=== PATIENT | male | born 1975 | race American Indian/Alaskan Native ===

== ENCOUNTER 2017-09-30 21:01 | Inpatient (IN) | payer SELFPAY ==
[2017-09-30 21:04] VITALS: BMI 33.4
[2017-09-30 21:10] VITALS: O2SAT 98
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
--- NOTE | 2017-10-01 01:13 | ED PDOC ---
- Laboratory Results Result Diagrams: 10/01/17 01:20 10/01/17 01:20 - ECG ECG: Positive for: Viewed By Me (reviewed by ED attending) ECG Rhythm: Positive for: Sinus Rhythm O2 Sat by Pulse Oximetry: 98 Pulse Ox Interpretation: Normal - Radiology X-Ray: Viewed By Me X-Ray Interpretation: No Acute Disease - Progress ED Course And Treament: Case endorsed to sign writer letterer or painter from [facility] SERR[facility] pending labs, xray, ekg Medical Decision Making Medical Decision Making: Patient medically stable for psych admission. Disposition - Clinical Impression Clinical Impression: Adjustment disorder, Depressed mood - POA Present On Arrival: None - Disposition Disposition: Admitted as In-Patient Disposition Time: 02:15 Condition: STABLE
[2017-10-01 01:35] LABS: BASO # 0.1 K/uL (0.0-0.2); BASO % 0.8 % (0.0-2.0); EOS # 0.4 K/uL (0.0-0.7); EOS % 4.7 % (0.0-4.0); HEMOGLOBIN 13.3 g/dL (12.0-18.0); LYMPH # 3.1 K/uL (1.0-4.3); LYMPH % 34.1 % (20.0-40.0); MEAN CELL VOLUME 92.8 fl (80.0-94.0); MEAN CORPUSCULAR HEMOGLOBIN 29.2 pg (27.0-31.0); MEAN CORPUSCULAR HGB CONC 31.5 g/dL (33.0-37.0); MEAN PLATELET VOLUME 8.3 fl (7.2-11.7); MONO # 0.8 K/uL (0.0-0.8); MONO % 9.2 % (0.0-10.0); NEUT # 4.6 K/uL (1.8-7.0); NEUT % 51.2 % (50.0-75.0); NRBC % 0.1 % (0.0-0.0); RBC 4.54 Mil/uL (4.40-5.90); RED CELL DISTRIBUTION WIDTH 14.9 % (11.5-14.5)
[2017-10-01 01:42] LABS: SQUAMOUS EPITHIAL 2 /hpf (0-5); URINE BACTERIA RARE (<OCC); URINE BILIRUBIN NEGATIVE (NEGATIVE); URINE BLOOD NEGATIVE (NEGATIVE); URINE CLARITY SLIGHTY-CLOUDY (Clear); URINE COLOR YELLOW (YELLOW); URINE GLUCOSE (UA) NEG (Normal); URINE LEUKOCYTE ESTERASE NEG Leu/uL (Negative); URINE NITRATE NEGATIVE (NEGATIVE); URINE PROTEIN 30 mg/dL (NEGATIVE)
[2017-10-01 01:49] LABS: ALB/GLOB RATIO 1.2 (1.0-2.1); ALBUMIN 3.8 g/dL (3.5-5.0); ALT/SGPT 40 U/L (21-72); AST/SGOT 20 U/L (17-59); BARBITURATES, UR NEGATIVE (NEGATIVE); BENZODIAZEPINES, UR NEGATIVE (NEGATIVE); BLOOD UREA NITROGEN 24 mg/dl (9-20); CALCIUM 8.9 mg/dL (8.4-10.2); GFR AFRICAN-AMERICAN > 60; GFR NON-AFRICAN AMERICAN > 60; OPIATES, UR NEGATIVE (NEGATIVE); PHENCYCLIDINE, UR NEGATIVE (NEGATIVE)
[2017-10-01 03:14] VITALS: RESP 18
[2017-10-01] MEDS ORDERED: Alum-Mag Hydrox-Simethicone Susp (30 mL) PO PRN (03:56)
[2017-10-01] MEDS ORDERED: Magnesium Hydroxide Susp 30 ml UD PO PRN (03:56)
[2017-10-01] MEDS ORDERED: DiphenhydrAMINE 50 mg/ml Inj IM PRN (03:56)
[2017-10-01] MEDS ORDERED: Bismuth Subsalicylate 262 mg/15 ml Sus (240 ml) PO PRN (03:58)
--- NOTE | 2017-10-01 04:24 | PCM.BM ---
<RoxanaFly Burns - Last Filed: 10/01/17 04:22> Treatment Plan Problems - Problems identified on initial assessmt Medication nonadherence Date Initiated: 10/01/17 Time Initiated: : Assessment reference: NA Status: Active Altered Sleep Patterns Date Initiated: 10/01/17 Time Initiated: 04:23 Assessment reference: NA Status: Active Treatment assets and liabiliti Patient Assests: physically healthy, negotiates basic needs, cognitively intact Patient Liabilities: live alone, financial problems, poor support system - Milieu Protocol Maintain good personal hygiene: daily Encourage regular showers, daily Remind patient to perform daily oral care Conduct patient checks and document Observation sheet: Q15 minutes Maintain personal safety: every shift Educate patient to report safety concerns to staff, every shift Monitor environment for contraband/sharps Medication safety: Monitor for expected outcome, potential side effects: every shift, Assess barriers to learning: every shift, Assess readiness for medication education: every shift <Alec Wilburn J - Last Filed: 10/03/17 16:39> Family Contact Family involvement: Family/SO is involved Family contact: Patient declines to allow family contact at present Family contact name: Pt refused. - Goals for Treatment Patient goals for treatment: Pt did not list any goals for treatment and instead was fixated on making sure [facility] would pay for him to return to [place]. Discharge/Continuing Care - Education Needs Education Needs: Patient Medication, Patient Coping Skills, Patient Community resources, Patient Aftercare Safety Plan - Discharge Discharge Criteria: Tolerates medication w/o severe side effects, Free of Suicidal thoughts, Free of agitation, Normal sleep pattern Discharge to:: Home, With Family <Doreen Kim - Last Filed: 10/04/17 12:11> Discharge/Continuing Care - Treatment Team Participation Patient/Family/SO Statement: 10/04/17 12:11 Patient initially refused to attend tx team, stating "I always spoke to the doctor". Patient agreed to attend with staff encouragement. Patient presents as superficially cooperative and superficially pleasant. Patient visible on 3NP and observed socializing with select peers. Patient less depressed, anxious and irritable than upon admission. Insight is limited. Patient ambivalent towards aftercare and focused on housing resources. Territory Service Representative emphasized importance of compliance with aftercare to reduce risk of future hospitalizations and ensure maximum safety/functioning in the community. Patient agreeable to outpatient mental health services but expressed concerns towards being able to travel to [facility] secondary to being unfamiliar with the area. [facility] discussed. Patient agreeable. Discussed with Family/SO: No Was Patient/Family/SO present at Treatment Team Meeting: Yes <Jordon Reynolds - Last Filed: 10/05/17 09:29> - Diagnosis (1) Depression Status: Acute Interventions: 10/05/17 09:28 psychotherapy, pharmacotherapy (2) Depressed mood Status: Acute Interventions: psychotherapy, pharmacotherapy 10/05/17 09:29
--- NOTE | 2017-10-01 09:47 | RAD ---
HISTORY: psych COMPARISON: None available. TECHNIQUE: Chest, one view. FINDINGS: LUNGS: No focal consolidation. Probable calcified granulomas at the right mid to lower lung field. Please note that chest x-ray has limited sensitivity for the detection of pulmonary masses. PLEURA: No significant pleural effusion identified. No definite pneumothorax . CARDIOVASCULAR: Heart size appears within normal limits. OSSEOUS STRUCTURES: Degenerative changes of the spine. VISUALIZED UPPER ABDOMEN: Unremarkable. OTHER FINDINGS: None. IMPRESSION: No focal consolidation, significant pleural effusion, or definite pneumothorax identified. Probable calcified granulomas, right mid to lower lung field.
--- NOTE | 2017-10-01 10:22 | CP.PCM.CON ---
<Chanda Norton - Last Filed: 10/01/17 15:16> History of Present Illness - History of Present Illness History of Present Illness: 42 y/o male patient with no significant PMHx was seen and evaluated at bedside in psych this morning. Patient states that he came to the ED last night for SI. Patient states that he has been having this type of ideas for a while now. Patient denies of any recent F/N/V/C/SOB/CP/headache/calf pain/diarrhea. Denies of any other complains at this time. PMHx: Denies PSHx: Leg surgery at [facility] due to a dog bite Allergies: N.K.D.A SHx: Denies smoking, EtOH or illicit drug usage, lives in [place] with his dad FHx: Hx of HTN Review of Systems - Constitutional Constitutional: As Per HPI Past Patient History - Past Social History Smoking Status: Never Smoked - CARDIAC Hx Cardiac Disorders: No - PULMONARY Hx Tuberculosis: No - NEUROLOGICAL Hx Neurological Disorder: No HX Cerebrovascular Accident: No Hx Seizures: No - HEENT Hx HEENT Problems: No - RENAL Hx Chronic Kidney Disease: No - ENDOCRINE/METABOLIC Hx Endocrine Disorders: No - HEMATOLOGICAL/ONCOLOGICAL Hx Blood Disorders: No Hx Cancer: No Hx Human Immunodeficiency Virus (HIV): No - INTEGUMENTARY Hx Dermatological Problems: No - MUSCULOSKELETAL/RHEUMATOLOGICAL Hx Musculoskeletal Disorders: No - GASTROINTESTINAL Hx Gastrointestinal Disorders: No - GENITOURINARY/GYNECOLOGICAL Hx Genitourinary Disorders: No Hx Sexually Transmitted Disorders: No - PSYCHIATRIC Hx Substance Use: No - SURGICAL HISTORY Hx Surgeries: No - ANESTHESIA Hx Anesthesia: No Meds Allergies/Adverse Reactions: Allergies Allergy/AdvReac Type Severity Reaction Status Date / Time No Known Allergies Allergy Verified 09/30/17 21:03 - Medications Medications: Current Medications Acetaminophen (Tylenol 325mg Tab) 650 mg PO Q4 PRN PRN Reason: pain level 4-7 Al Hydrox/Mg Hydrox/Simethicone (Maalox Plus 30 Ml) 30 ml PO Q4 PRN PRN Reason: Dyspepsia Bismuth Subsalicylate (Pepto-Bismol) 524 mg PO Q4H PRN PRN Reason: Diarrhea Diphenhydramine HCl (Benadryl) 50 mg IM Q6 PRN PRN Reason: Extrapyramidal S/S Unable PO Diphenhydramine HCl (Benadryl) 50 mg PO Q6 PRN PRN Reason: Extrapyramidal Symptoms Haloperidol (Haldol) 5 mg PO Q4 PRN PRN Reason: Agitation Haloperidol Lactate (Haldol) 5 mg IM Q4 PRN PRN Reason: Agitation, Unable to Take PO Lorazepam (Ativan) 2 mg IM Q4 PRN PRN Reason: Anxiety/Agitation,Unable PO Lorazepam (Ativan) 2 mg PO Q4 PRN PRN Reason: Anxiety/Agitation Magnesium Hydroxide (Milk Of Magnesia) 30 ml PO HS PRN PRN Reason: Constipation Physical Exam - Constitutional Appears: Well, Non-toxic, No Acute Distress - Head Exam Head Exam: ATRAUMATIC - Eye Exam Eye Exam: Normal appearance - ENT Exam ENT Exam: Normal Exam - Neck Exam Neck exam: Positive for: Full Rom, Normal Inspection - Respiratory Exam Respiratory Exam: Clear to Auscultation Bilateral, NORMAL BREATHING PATTERN - Cardiovascular Exam Cardiovascular Exam: REGULAR RHYTHM, +S1, +S2 - GI/Abdominal Exam GI & Abdominal Exam: Normal Bowel Sounds, Soft - Rectal Exam Rectal Exam: Deferred - Extremities Exam Extremities exam: Positive for: full ROM, normal capillary refill, normal inspection, pedal pulses present. Negative for: calf tenderness, joint swelling , pedal edema, tenderness - Back Exam Back exam: FULL ROM, NORMAL INSPECTION. absent: tenderness - Neurological Exam Neurological exam: Alert, Oriented x3 - Psychiatric Exam Psychiatric exam: Normal Affect, Normal Mood - Skin Skin Exam: Intact, Normal Color, Warm Results - Vital Signs Recent Vital Signs: Last Vital Signs Temp 97.1 F L 10/01/17 05:51 Pulse 73 10/01/17 05:51 Resp 18 10/01/17 05:51 BP 133/79 10/01/17 05:51 Pulse Ox 98 10/01/17 03:13 - Labs Result Diagrams: 10/01/17 01:20 10/01/17 01:20 Labs: Laboratory Results - last 24 hr 10/01/17 10/01/17 10/01/17 01:20 01:20 01:20 WBC 9.0 RBC 4.54 Hgb 13.3 Hct 42.1 MCV 92.8 MCH 29.2 MCHC 31.5 L RDW 14.9 H Plt Count 382 MPV 8.3 Neut % (Auto) 51.2 Lymph % (Auto) 34.1 [place] % (Auto) 9.2 Eos % (Auto) 4.7 H Baso % (Auto) 0.8 Neut # 4.6 Lymph # 3.1 [place] # 0.8 Eos # 0.4 Baso # 0.1 Sodium 140 Potassium 4.3 Chloride 106 Carbon Dioxide 26 Anion Gap 12 BUN 24 H Creatinine 1.0 Est GFR ( Amer) > 60 Est GFR (Non-Af Amer) > 60 Random Glucose 101 Calcium 8.9 Total Bilirubin 0.1 L AST 20 ALT 40 Alkaline Phosphatase 46 Total Protein 7.0 Albumin 3.8 Globulin 3.2 Albumin/Globulin Ratio 1.2 Urine Color Urine Clarity Urine pH Ur Specific [place] Urine Protein Urine Glucose (UA) Urine Ketones Urine Blood Urine Nitrate Urine Bilirubin Urine Urobilinogen Ur Leukocyte Esterase Urine RBC (Auto) Urine Microscopic WBC Ur Squamous Epith Cells Urine Bacteria Urine Opiates Screen Negative Urine Methadone Screen Negative Ur Barbiturates Screen Negative Ur Phencyclidine Scrn Negative Ur Amphetamines Screen Negative U Benzodiazepines Scrn Negative U Oth Cocaine Metabols Positive H U Cannabinoids Screen Negative Alcohol, Quantitative < 10 10/01/17 01:20 WBC RBC Hgb Hct MCV MCH MCHC RDW Plt Count MPV Neut % (Auto) Lymph % (Auto) [place] % (Auto) Eos % (Auto) Baso % (Auto) Neut # Lymph # [place] # Eos # Baso # Sodium Potassium Chloride Carbon Dioxide Anion Gap BUN Creatinine Est GFR ( Amer) Est GFR (Non-Af Amer) Random Glucose Calcium Total Bilirubin AST ALT Alkaline Phosphatase Total Protein Albumin Globulin Albumin/Globulin Ratio Urine Color Yellow Urine Clarity Slighty-cloudy Urine pH 6.0 Ur Specific [place] 1.036 H Urine Protein 30 Urine Glucose (UA) Neg Urine Ketones Negative Urine Blood Negative Urine Nitrate Negative Urine Bilirubin Negative Urine Urobilinogen 4.0 Ur Leukocyte Esterase Neg Urine RBC (Auto) 3 Urine Microscopic WBC 2 Ur Squamous Epith Cells 2 Urine Bacteria Rare Urine Opiates Screen Urine Methadone Screen Ur Barbiturates Screen Ur Phencyclidine Scrn Ur Amphetamines Screen U Benzodiazepines Scrn U Oth Cocaine Metabols U Cannabinoids Screen Alcohol, Quantitative Assessment & Plan - Assessment and Plan (Free Text) Assessment: 42 y/o male patient with no significant PMHx was seen and evaluated at bedside in psych Plan: Patient seen and evaluated at bedside Patient is stable medically Will continue to monitor patient while in-house - Date & Time Date: 10/01/17 Time: 09:30 <Vishnu Vance - Last Filed: 10/01/17 17:37> Meds - Medications Medications: Current Medications Acetaminophen (Tylenol 325mg Tab) 650 mg PO Q4 PRN PRN Reason: pain level 4-7 Al Hydrox/Mg Hydrox/Simethicone (Maalox Plus 30 Ml) 30 ml PO Q4 PRN PRN Reason: Dyspepsia Bismuth Subsalicylate (Pepto-Bismol) 524 mg PO Q4H PRN PRN Reason: Diarrhea Diphenhydramine HCl (Benadryl) 50 mg IM Q6 PRN PRN Reason: Extrapyramidal S/S Unable PO Diphenhydramine HCl (Benadryl) 50 mg PO Q6 PRN PRN Reason: Extrapyramidal Symptoms Escitalopram Oxalate (Lexapro) 10 mg PO DAILY [facility] Last Admin: 10/01/17 15:05 Dose: 10 mg Haloperidol (Haldol) 5 mg PO Q4 PRN PRN Reason: Agitation Haloperidol Lactate (Haldol) 5 mg IM Q4 PRN PRN Reason: Agitation, Unable to Take PO Lorazepam (Ativan) 2 mg IM Q4 PRN PRN Reason: Anxiety/Agitation,Unable PO Lorazepam (Ativan) 2 mg PO Q4 PRN PRN Reason: Anxiety/Agitation Magnesium Hydroxide (Milk Of Magnesia) 30 ml PO HS PRN PRN Reason: Constipation Risperidone (Risperdal M-Tab) 1 mg PO HS [facility] Results - Vital Signs Recent Vital Signs: Last Vital Signs Temp 97.1 F L 10/01/17 05:51 Pulse 73 10/01/17 05:51 Resp 18 10/01/17 05:51 BP 133/79 10/01/17 05:51 Pulse Ox 98 10/01/17 03:13 - Labs Result Diagrams: 10/01/17 01:20 10/01/17 01:20 Labs: Laboratory Results - last 24 hr 10/01/17 10/01/17 10/01/17 01:20 01:20 01:20 WBC 9.0 RBC 4.54 Hgb 13.3 Hct 42.1 MCV 92.8 MCH 29.2 MCHC 31.5 L RDW 14.9 H Plt Count 382 MPV 8.3 Neut % (Auto) 51.2 Lymph % (Auto) 34.1 [place] % (Auto) 9.2 Eos % (Auto) 4.7 H Baso % (Auto) 0.8 Neut # 4.6 Lymph # 3.1 [place] # 0.8 Eos # 0.4 Baso # 0.1 Sodium 140 Potassium 4.3 Chloride 106 Carbon Dioxide 26 Anion Gap 12 BUN 24 H Creatinine 1.0 Est GFR ( Amer) > 60 Est GFR (Non-Af Amer) > 60 Random Glucose 101 Calcium 8.9 Total Bilirubin 0.1 L AST 20 ALT 40 Alkaline Phosphatase 46 Total Protein 7.0 Albumin 3.8 Globulin 3.2 Albumin/Globulin Ratio 1.2 Urine Color Urine Clarity Urine pH Ur Specific [place] Urine Protein Urine Glucose (UA) Urine Ketones Urine Blood Urine Nitrate Urine Bilirubin Urine Urobilinogen Ur Leukocyte Esterase Urine RBC (Auto) Urine Microscopic WBC Ur Squamous Epith Cells Urine Bacteria Urine Opiates Screen Negative Urine Methadone Screen Negative Ur Barbiturates Screen Negative Ur Phencyclidine Scrn Negative Ur Amphetamines Screen Negative U Benzodiazepines Scrn Negative U Oth Cocaine Metabols Positive H U Cannabinoids Screen Negative Alcohol, Quantitative < 10 10/01/17 01:20 WBC RBC Hgb Hct MCV MCH MCHC RDW Plt Count MPV Neut % (Auto) Lymph % (Auto) [place] % (Auto) Eos % (Auto) Baso % (Auto) Neut # Lymph # [place] # Eos # Baso # Sodium Potassium Chloride Carbon Dioxide Anion Gap BUN Creatinine Est GFR ( Amer) Est GFR (Non-Af Amer) Random Glucose Calcium Total Bilirubin AST ALT Alkaline Phosphatase Total Protein Albumin Globulin Albumin/Globulin Ratio Urine Color Yellow Urine Clarity Slighty-cloudy Urine pH 6.0 Ur Specific [place] 1.036 H Urine Protein 30 Urine Glucose (UA) Neg Urine Ketones Negative Urine Blood Negative Urine Nitrate Negative Urine Bilirubin Negative Urine Urobilinogen 4.0 Ur Leukocyte Esterase Neg Urine RBC (Auto) 3 Urine Microscopic WBC 2 Ur Squamous Epith Cells 2 Urine Bacteria Rare Urine Opiates Screen Urine Methadone Screen Ur Barbiturates Screen Ur Phencyclidine Scrn Ur Amphetamines Screen U Benzodiazepines Scrn U Oth Cocaine Metabols U Cannabinoids Screen Alcohol, Quantitative Assessment & Plan - Assessment and Plan (Free Text) Plan: ATTENDING HOSPITALIST ATTESTATION Patient seen and examined. I fully agree with the findings above as dictated by the resident. Patient with no medical problems admitted to psychiatry for further workup. Thank you for the consultation.Will continue to see PRN.
--- NOTE | 2017-10-01 10:47 | CARD ---
APPROVED REPORT EKG Measurement Heart [id number] MI [id number] <Conclusion> Normal sinus rhythm Normal ECG
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
[2017-10-01] MEDS: Risperidone M tab 1 MG PO SCH (21:07)
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
[2017-10-02] MEDS: Risperidone M tab 1 MG PO SCH (21:10)
[2017-10-02] MEDS: Divalproex 500 mg DR(BID formulation) PO SCH (21:10)
[2017-10-03] MEDS: Divalproex 500 mg DR(BID formulation) PO SCH ×2 (12:22→17:04)
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
[2017-10-03 18:58] VITALS: TEMP 97.9
[2017-10-04] MEDS ORDERED: Divalproex 500 mg DR(BID formulation) PO SCH (09:00)
[2017-10-04] MEDS: Divalproex 500 mg DR(BID formulation) PO SCH ×2 (10:20→21:14)
--- NOTE | 2017-10-04 16:39 | PCM.PYCHPN ---
Psychiatric Progress Note - Psychiatric Progress Note Patient seen today, length of contact: chart reviewed case discussed with team Patient Chief Complaint: I feel a little better with the medicine Problems Identified/Issues Discussed: pt on evaluation, calmer cooperative reported feeling less depressed and less anxious, partial clearing of the non command auditory hallucinations denied any current suicidal or homicidal ideations' denied side effects of medications Medical Problems: pt poor historian reported being seen by psychiatrist at age 7 not able to give details, currently not in treatment and denied previous psychiatric hospitalizations DSM 5 Symptoms Update: PTSD DEPRESSION Medication Change: No (valproic acid dr 500mg po 9a and 9p) Medical Record Reviewed: Yes Mental Status Examination - Cognitive Function Orientation: Person, Place, Situation, Time Attention: WNL Concentration: WNL Association: WNL Fund of Knowledge: WNL - Mood Mood: Depressed, Anxious - Affect Affect: Constricted, Depressed - Speech Speech: Appropriate - Formal Thought Process Formal Thought Process: Circumstantial Psychotic Thoughts and Behaviors: REPORTED CLEARING OFF OF THE NON COMMAND AUDITORY HALLUCINATIONS - Suicidal Ideation Suicidal Ideation: No - Homicidal Ideation Homicidal Ideation: No Goal/Treatment Plan - Goal/Treatment Plan Need for Continued Stay: Remain at risks for inpatient hospitalization, Discharge may exacerbated symptoms Progress Toward Problem(s) and Goals/Treatment Plan: sCONTINUE WITH DEPAKOTE GROUP AND SUPPORTIVE THERAPY
[2017-10-05 09:14] VITALS: BP 142/51; PULSE 68
[2017-10-05] MEDS: Divalproex 500 mg DR(BID formulation) PO SCH (09:43)
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
== END 2017-10-05 10:30 | disposition home or self-care (01) | DRG 880 ==
LOC: H.ER 21:01 → H.ERHOLD 23:24 → H.PSYCH 10-01 03:51
PROVIDERS: ADMIT Psychiatry & Neurology Psychiatry; ATTEND Psychiatry & Neurology Psychiatry
PROC: GZHZZZZ Group Psychotherapy (ICD-10-PCS; principal; 2017-09-30)
PROC: GZ56ZZZ Individual Psychotherapy, Supportive (ICD-10-PCS; 2017-09-30)
DX: F43.0 Acute stress reaction (principal); R45.851 Suicidal ideations; F14.959 Cocaine use, unspecified with cocaine-induced psychotic disorder, unspecified; F32.9 Major depressive disorder, single episode, unspecified